=== PATIENT | male | born 1960 | race Caucasian/White ===

== ENCOUNTER 2017-01-31 21:20 | Emergency (ER) | payer OTHER ==
[2017-01-31 22:22] VITALS: BP 164/103
--- NOTE | 2017-01-31 22:28 | UC ---
Elbow Pain - HPI Summary HPI Summary: The patient comes in today for: 1. Right arm pain: Onset: 3 days ago. Palliative/provocative: Abducting his arm and extending his fingers makes the pain worse. Quality: Aches Region: Right shoulder, right elbow, right forearm, right wrist. Severity: 6/10 Time: Constant. Associated symptoms: Numbness: None Elbow pain is worse with extending of his fingers. 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 Previous injuries: None. Previous treatment: He put ice on it. Aleve helped "a little bit." Event: He fell while carrying wood in the crook of his arm and besides falling with the wood there, he feel onto the wood pile. He denies any tingling, numbness or weakness other than what is due to pain. He states that he has problems fully extending one of his fingers of the hand, but states that there is pain with doing so. There is minimal pain unless the upper forearm is palpated. * - History of Current Complaint Stated Complaint: FINGER INJURY Time Seen by Provider: 01/31/17 22:21 Hx Obtained From: Patient - Allergies/Home Medications Allergies/Adverse Reactions: Allergies Allergy/AdvReac Type Severity Reaction Status Date / Time Gluten Meal Allergy Severe Itching Verified 11/24/14 18:40 Home Medications: Home Medications Amlodipine Besylate [Norvasc 5 mg tab] 01/31/17 [History] Doxazosin Mesylate [Doxazosin] 01/31/17 [History] Insulin Syringe/Needle U-100 [Insulin Syringes/1Ml/30Gx 30G X 1/2" 1 ml] DAILY 01/31/17 [History] PMH/Surg Hx/FS Hx/Imm Hx Previously Healthy: No Endocrine History Of: Reports: Diabetes - type 2, Thyroid Disease Denies: Hyperthyroidism, Hypothyroidism, Dyslipidemia Cardiovascular History Of: Reports: Hypertension Denies: Cardiac Disorders, Pacemaker/ICD, Myocardial Infarction, Congestive Heart Failure, Atrial Fibrillation, Deep Vein Thrombosis, Bleeding Disorders Respiratory History Of: Denies: COPD, Asthma, Bronchitis, Pneumonia, Pulmonary Embolism GI/ History Of: Denies: Gastroesophageal Reflux, Ulcer, Gastrointestinal Bleed, Gall Bladder Disease, Kidney Stones, Diverticulitis, Renal Disease, Urosepsis Neurological History Of: Denies: TIA, CVA, Dementia, Seizures, Migraine Psychological History Of: Denies: Anxiety, Depression, Bipolar Disorder, Schizophrenia, Post Traumatic Stress Disorder Cancer History Of: Denies: Lung Cancer, Colorectal Cancer, Breast Cancer, Prostate Cancer, Cervical Cancer Other History Of: Anticoagulant Therapy - Daily aspirin Negative For: HIV, Hepatitis B, Hepatitis C - Surgical History Surgical History: Yes Surgery Procedure, Year, and Place: lt hand trigger finger release - Family History Known Family History: Positive: Cardiac Disease, Hypertension - Social History Occupation: Employed Full-time Lives: With Family Alcohol Use: Occasionally Substance Use Type: None Smoking Status (MU): Never Smoked Tobacco Review of Systems Constitutional: Negative Skin: Negative Eyes: Negative ENT: Negative Respiratory: Negative Cardiovascular: Negative Gastrointestinal: Negative Genitourinary: Negative Motor: Negative Musculoskeletal: Arthralgia All Other Systems Reviewed And Are Negative: Yes Physical Exam Triage Information Reviewed: Yes Appearance: Well-Appearing, No Pain Distress, Well-Nourished Vital Signs Reviewed: Yes Eyes: Positive: Conjunctiva Clear ENT: Positive: Hearing grossly normal. Negative: Pharyngeal erythema, Nasal congestion, Nasal drainage, TM bulging, TM dull, TM red, Tonsillar swelling, Tonsillar exudate Dental: Negative: Gross Decay/Caries @, Dental Fracture @ Neck: Positive: Supple, Nontender, No Lymphadenopathy. Negative: Nuchal Rigidity Respiratory: Positive: Lungs clear, No respiratory distress, No accessory muscle use. Negative: Crackles, Rhonchi Cardiovascular: Positive: RRR, No Murmur, Pulses Normal - Radial pulses are 2+/ 2 x 2. Abdomen Description: Positive: Nontender, No Organomegaly, Soft. Negative: Distended, Guarding Musculoskeletal: Positive: Strength Intact, ROM Intact, ROM Limited @ - His right elbow extension and flexion is only slightly less than his left arm. There is edema of the upper right forearm, but it is not indurated. Color is good in both arm. He has good supination/pronation. Neurological: Positive: Alert, Muscle Tone Normal Psychological: Positive: Age Appropriate Behavior, Consolable Skin: Negative: rashes, breakdown Diagnostics - Radiology No standard instances Xray Interpretation: Positive (See Comments) - IMPRESSION: 1. HIGHLY QUESTIONABLE FRACTURE AT THE RADIAL ASPECT OF THE RADIAL HEAD. THERE IS NO ELBOW EFFUSION THAT WOULD USUALLY BE SEEN IN THE SETTING OF AN ELBOW FRACTURE. 2. OTHERWISE DEGENERATIVE CHANGES DESCRIBED ABOVE WITHOUT RADIOGRAPHICALLY APPARENT FRACTURE OR DISLOCATION INVOLVING THE RIGHT UPPER EXTREMITY. Radiology Interpretation Completed By: Radiologist Elbow Pain Course/Dx - Course Course Of Treatment: Patient told of the result of the x-ray. At this time, I am recommending that the patient be put in a splint and to see orthopedics calling for an appointment tomorrow. He had a long arm sling applied to the right arm. - Differential Dx/Diagnosis Provider Diagnoses: radial head fracture. Contusion. high blood pressure. Discharge - Discharge Plan Condition: Stable Disposition: HOME Patient Education Materials: Elbow Fracture (ED) Referrals: Chester Cheng MD [Primary Care Provider] - 1 Week (Please contact your primary care provider for evaluation of your blood pressure no later than a week.) Harpal Shannon MD [Medical Doctor] - As Soon As Possible (Please contact Dr. Shannon's office tomorrow for evaluation of your possible radial head fracture.) Additional Instructions: Take [id number] pain medications as needed.
--- NOTE | 2017-01-31 23:27 | RAD ---
INDICATION: Right upper extremity pain 3 days after a fall COMPARISON: None. TECHNIQUE: 4 views of the right shoulder, 4 views of the right elbow, 2 views of the right forearm and 3 views of the right wrist were obtained. FINDINGS: Shoulder: The adequately corticated bones of the shoulder are in normal alignment. Joint mild degenerative changes at the acromial clavicular joint include osteophyte formation. No fracture, dislocation or focal bony abnormality is seen. Elbow: Degenerative changes of the right elbow include marginal osteophyte formation. On the AP view of the elbow there is the appearance of cortical discontinuity along the radial margin of the radial head. In the lateral view this appears to be a degenerative osteophyte as opposed to an acute fracture. The bones are otherwise adequately corticated and appropriately aligned. There is no right elbow effusion. Forearm and wrist: The shafts of the radius and ulna appear to be intact. The carpal bones are appropriately aligned. There is no radiographically visible wrist fracture. Degenerative changes are noted at the right thumb metacarpal trapezium joint including sclerotic change and bony remodeling of the articulating surfaces. IMPRESSION: 1. HIGHLY QUESTIONABLE FRACTURE AT THE RADIAL ASPECT OF THE RADIAL HEAD. THERE IS NO ELBOW EFFUSION THAT WOULD USUALLY BE SEEN IN THE SETTING OF AN ELBOW FRACTURE. 2. OTHERWISE DEGENERATIVE CHANGES DESCRIBED ABOVE WITHOUT RADIOGRAPHICALLY APPARENT FRACTURE OR DISLOCATION INVOLVING THE RIGHT UPPER EXTREMITY. If the patient's symptoms persist, follow-up imaging is recommended.
[2017-01-31] MEDS ORDERED: HYDROcodone/ACETAMIN 5-325 MG* 1 TAB PO ONE (23:49)
== END 2017-02-01 | disposition home or self-care (01) ==
LOC: UCEAST 21:20
DX: S52.121A Displaced fracture of head of right radius, initial encounter for closed fracture (principal); S40.021A Contusion of right upper arm, initial encounter; W19.XXXA Unspecified fall, initial encounter; Y93.89 Activity, other specified; Y92.9 Unspecified place or not applicable; I10 Essential (primary) hypertension; E11.9 Type 2 diabetes mellitus without complications; Z79.4 Long term (current) use of insulin; Z79.82 Long term (current) use of aspirin
CPT/HCPCS: 99213; G0463

== ENCOUNTER 2018-01-22 16:11 | Emergency (ER) | payer OTHER ==
[2018-01-22 16:21] VITALS: BP 147/86
[2018-01-22] MEDS ORDERED: Rabies Immune Globulin 2 ML* 150 UNITS/ML VIAL IM ONE ×3 (16:46→19:00)
[2018-01-22] MEDS ORDERED: Rabies Immune Globulin 10 ML* 150 UNIT/ML VIAL IM ONE ×2 (16:46→19:00)
[2018-01-22] MEDS ORDERED: Tetan/Diph/Pertus SYR(Tdap)* 0.5 ML SYR(BOOSTRIX) use SYR IM ONE (16:57)
[2018-01-22] MEDS: Rabies VIRUS VACCINE (Imovax)* 2.5 UNIT/ML 1 ML IM ONE ×2 (18:01→18:24)
--- NOTE | 2018-01-22 18:49 | UC ---
Bite Injury/Animal HPI - HPI Summary HPI [place], tissue samples were sent to lab but were inconclusive and were unable to be ran to 2 tissue sample. Discussed case with Isela White from the [facility] Department who recommends full prophylaxis, rabies vaccine and immunoglobulin as well as T. He denies any pain. There are several abrasions to his bilateral arms due to eczematic scratching. Denies any pain or other symptoms at this time. - History of Current Complaint Chief Complaint: UCBodyFluidExposure Stated Complaint: RABIES EXPOSURE Time Seen by Provider: 01/22/18 16:13 Hx Obtained From: Patient Severity Currently: Mild Severity Initially: Mild Pain Intensity: 0 Pain Scale Used: 0-10 Numeric Onset/Duration: Sudden Onset Character: Abrasion/Laceration Aggravating Factor(s): Nothing Alleviating Factor(s): Nothing Associated Signs And Symptoms: Positive: Negative Animal Available for Observation: No - Risk Factors Infection/Sepsis Risk Factors: Negative - Allergies/Home Medications Allergies/Adverse Reactions: Allergies Allergy/AdvReac Type Severity Reaction Status Date / Time MS Gluten Meal [Gluten Meal] Allergy Severe Itching Verified 01/22/18 16:21 Home Medications: Home Medications Naproxen Sodium [Aleve] 440 mg PO 01/22/18 [History] PMH/Surg Hx/FS Hx/Imm Hx Previously Healthy: Yes Other History Of: Anticoagulant Therapy - Daily aspirin Negative For: HIV, Hepatitis B, Hepatitis C - Surgical History Surgical History: Yes Surgery Procedure, Year, and Place: lt hand trigger finger release - Family History Known Family History: Positive: Cardiac Disease, Hypertension - Social History Occupation: Employed Full-time Lives: With Family Alcohol Use: Occasionally Substance Use Type: None Smoking Status (MU): Never Smoked Tobacco Review of Systems Constitutional: Negative Skin: Other - bilateral arm abrasions Eyes: Negative Respiratory: Negative Cardiovascular: Negative Motor: Negative Neurovascular: Negative Musculoskeletal: Negative Neurological: Negative Is Patient Immunocompromised?: No All Other Systems Reviewed And Are Negative: Yes Physical Exam Triage Information Reviewed: Yes Appearance: Well-Appearing, Well-Nourished Vital Signs: Initial Vital Signs Temp 89.9 F 01/22/18 16:16 Pulse 80 01/22/18 16:16 Resp 18 01/22/18 16:16 BP 147/86 01/22/18 16:16 Pulse Ox 98 05/16/18 16:16 Vital Signs Reviewed: Yes Eye Exam: Normal Eyes: Positive: Conjunctiva Clear Neck exam: Normal Neck: Positive: Supple, No Lymphadenopathy Respiratory: Positive: Chest non-tender Cardiovascular Exam: Normal Musculoskeletal Exam: Normal Musculoskeletal: Positive: Strength Intact Psychological: Positive: Normal Response To Family Skin: Positive: Other - bilateral arm abrasions Bite Injury Course/Dx - Course Course Of Treatment: No known bite. [facility] called and spoke with Isela Salgado who advised prophylaxis. Rabies vaccine 2.5 (rabavert) giv multiple IM in L deltoid. Tdap not current and given .5ml IM in R deltoid. Administered by Danielle Smith RN. HRIG advised d/t high risk and administered based on patients weight of 103.45 X .133 = 13.75ml. 2.3ml given L anterolateral; 3ml R anterolateral; 3 ml L vastus lateralis; 2ml R vastus lateralis. HRIG given into abrasion wounds to the bilateral arms. Patient denies any pain, symptoms or open wounds. Will follow up as instructed on 3, 7, and 14 as followed by [facility] and WHO protocols. Patient OK with discharge and will follow up accordingly. He will have follow up as directed. - Differential Dx/Diagnosis Provider Diagnoses: Rabies prophylaxis Discharge - Sign-Out/Discharge Documenting (check all that apply): Discharge/Admit/Transfer - Discharge Plan Condition: Stable Disposition: HOME Patient Education Materials: Rabies Vaccine (By injection), Rabies Immune Globulin (By injection), Rabies (ED) Referrals: Chester Cheng MD [Primary Care Provider] - Additional Instructions: Follow up on 3, 7, and day 14 - Billing Disposition and Condition Condition: STABLE Disposition: HOME
== END 2018-01-22 18:00 | disposition home or self-care (01) ==
LOC: UCEAST 16:11
DX: Z20.3 Contact with and (suspected) exposure to rabies (principal); S40.812A Abrasion of left upper arm, initial encounter; S40.811A Abrasion of right upper arm, initial encounter; X58.XXXA Exposure to other specified factors, initial encounter; Y93.9 Activity, unspecified; Y92.79 Other farm location as the place of occurrence of the external cause; Z23 Encounter for immunization; Z79.82 Long term (current) use of aspirin
CPT/HCPCS: 90375; 90471; 90472; 90715; 96372; 99211; G0463

== ENCOUNTER 2018-03-02 18:53 | Emergency (ER) | payer OTHER ==
[2018-03-02 19:03] VITALS: BP 134/85
[2018-03-02] MEDS ORDERED: Tetracaine 0.5% OPTH.SOL 4 ML* 1 DROP BTL ONE (19:13)
[2018-03-02] MEDS ORDERED: Fluorescein Sod TOPICAL 0.6* 0.6 MG TEST OPHTHALMIC ONE ×2 (19:13→20:41)
[2018-03-02] MEDS ORDERED: BSS OPTH.SOL* BTL ONE (19:14)
[2018-03-02] MEDS ORDERED: Erythromycin OPTH OINT* APPLIC OINT LEFT EYE ONE (20:36)
--- NOTE | 2018-03-02 20:38 | UC ---
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 truck with pain of 4/10 when blinking - History of Current Complaint Chief Complaint: UCEye Stated Complaint: FOREIGN OBJECT IN EYE Time Seen by Provider: 03/02/18 20:14 Pain Intensity: 4 - Allergies/Home Medications Allergies/Adverse Reactions: Allergies Allergy/AdvReac Type Severity Reaction Status Date / Time gluten Allergy Hives Verified 03/02/18 19:03 PMH/Surg Hx/FS Hx/Imm Hx Other History Of: Anticoagulant Therapy - Daily aspirin Negative For: HIV, Hepatitis B, Hepatitis C - Surgical History Surgical History: Yes Surgery Procedure, Year, and Place: lt hand trigger finger release - Family History Known Family History: Positive: Cardiac Disease, Hypertension - Social History Alcohol Use: Occasionally Substance Use Type: None Smoking Status (MU): Never Smoked Tobacco Physical Exam Vital Signs: Initial Vital Signs Temp 98.6 F 03/02/18 18:58 Pulse 75 03/02/18 18:58 Resp 16 03/02/18 18:58 BP 134/85 03/02/18 18:58 Pulse Ox 96 03/02/18 18:58 Discharge - Discharge Plan Referrals: Chester Cheng MD [Primary Care Provider] -
[2018-03-02] MEDS ORDERED: Acetaminophen TAB* 325 MG PO ONE (20:40)
[2018-03-02] MEDS ORDERED: Eye Irrigation Solution 30 ML BOTTLE LEFT EYE ONE (20:41)
[2018-03-02] MEDS ORDERED: Tetracaine 0.5% OPTH.SOL 4 ML* 1 DROP BTL LEFT EYE ONE (20:41)
[2018-03-02] MEDS ORDERED: Acetaminophen TAB* 325 MG ONE (21:09)
== END 2018-03-02 21:14 | disposition home or self-care (01) ==
LOC: UCEAST 18:53
DX: T15.92XA Foreign body on external eye, part unspecified, left eye, initial encounter (principal); Z91.018 Allergy to other foods; Z79.82 Long term (current) use of aspirin; X58.XXXA Exposure to other specified factors, initial encounter; Y92.9 Unspecified place or not applicable
CPT/HCPCS: 99212; A9270-GY; G0463